=== PATIENT | female | born 1965 | race Caucasian/White ===

== ENCOUNTER 2018-05-06 07:01 | Emergency (ER) | payer OTHER, SELFPAY ==
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
== END 2018-05-06 09:45 | disposition home or self-care (01) ==
LOC: ER 07:01
DX: S16.1XXA Strain of muscle, fascia and tendon at neck level, initial encounter (principal); V49.40XA Driver injured in collision with unspecified motor vehicles in traffic accident, initial encounter; Z88.6 Allergy status to analgesic agent
CPT/HCPCS: 72040; 72125; 99284